=== PATIENT | female | born 1990 | race African-American/Black ===

== ENCOUNTER 2017-08-13 03:20 | Emergency (ER) | payer MEDICAID ==
[~2017-08-13] VITALS: Ht 165.1 cm; Wt 73.0 kg
[~2017-08-13 03:20] MED LIST: ABILIFY; BENADRYL; CITALOPRAM; QUET25TA PO; TRAZODONE
[2017-08-13 04:26] LABS: HCG SCREEN NEGATIVE
[2017-08-13 04:27] LABS: BASOPHILS % 0.9 % (0.0-2.0); EOSINOPHILS % 2.4 % (0.0-5.0); HEMATOCRIT. 36.7 % (36.0-48.0); HEMOGLOBIN. 12.4 g/dL (12.0-16.0); LYMPHOCYTES % 25.6 % (20.0-50.0); MEAN CORPUSCULAR HEMOGLOBIN 26.9 pg (28.0-32.0); MEAN CORPUSCULAR VOLUME 79.5 fL (81.0-99.0); MEAN PLATELET VOLUME 9.8 fl (7.4-10.4); MONOCYTES % 6.6 % (2.0-8.0); NEUTROPHILS % 64.5 % (40.0-76.0); PLATELET 294 x1000/uL (130-400); RED BLOOD CELL COUNT 4.61 mill/uL (4.2-5.4); RED CELL DISTRIBUTION WIDTH 13.2 % (11.6-14.6)
[2017-08-13 04:33] LABS: CARBON DIOXIDE 21 mEq/L (21-32); CHLORIDE 109 mEq/L (98-107); ETHANOL BLOOD < 10 mg/dL
[2017-08-13 05:05] VITALS: BP 121/72
[2017-08-13 06:47] LABS: *AMPHETAMINES SCREEN URINE NEGATIVE (NEGATIVE); *BARBITURATES SCREEN URINE NEGATIVE (NEGATIVE); *BENZODIAZEPINES SCREEN URINE NEGATIVE (NEGATIVE); *COCAINE SCREEN URINE NEGATIVE (NEGATIVE); CANNABINOID URINE SCREEN NEGATIVE (NEGATIVE); METHADONE URINE SCREEN NEGATIVE (NEGATIVE); OPIATES URINE SCREEN NEGATIVE (NEGATIVE); PHENCYCLIDINE URINE SCREEN NEGATIVE (NEGATIVE)
== END 2017-08-13 07:45 | disposition home or self-care (01) ==
LOC: ER 03:20
DX: R53.83 Other fatigue (principal); F20.9 Schizophrenia, unspecified; F17.210 Nicotine dependence, cigarettes, uncomplicated; Z91.14 Patient's other noncompliance with medication regimen; Z88.6 Allergy status to analgesic agent
CPT/HCPCS: 36415; 70450; 80053; 80305; 80307; 80329; 82962; 84703; 85025; 99285; G0482; Z7610